=== PATIENT | female | born 1995 | race Caucasian/White ===

== ENCOUNTER 2018-03-24 18:04 | Emergency (ER) | payer SELFPAY ==
[2018-03-24 18:32] VITALS: TEMP 98
--- NOTE | 2018-03-24 18:41 | ED PDOC ---
Arrival/HPI - General Chief Complaint: ENT Problem Time Seen by Provider: 03/24/18 18:15 Historian: Patient - History of Present Illness Narrative History of Present Illness (Text): 03/24/18 18:37 A 22 year old female, with no significant past medical history, presents to the emergency department complaining of left ear pain for the past 2 days. Aching pain and associated by pulling the left ear and not touching, no hearing loss, no night sweat, no dizziness, no change in vision, no rash, no neck stiffness. Past Medical History - Provider Review Nursing Documentation Reviewed: Yes - Psychiatric Hx Substance Use: No Family/Social History - Physician Review Nursing Documentation Reviewed: Yes Family/Social History: No Known Family HX Smoking Status: Current Some Days Smoker Hx Alcohol Use: Yes Frequency of alcohol use: Socially Hx Substance Use: No Allergies/Home Meds Allergies/Adverse Reactions: Allergies No Known Allergies Allergy (Verified 03/24/18 18:13) Review of Systems - Physician Review All systems were reviewed & negative as marked: Yes - Review of Systems Constitutional: absent: Fatigue, Weight Change, Fevers Eyes: Other (left ear pain). absent: Vision Changes ENT: absent: Hearing Changes Respiratory: absent: SOB, Cough, Sputum Cardiovascular: absent: Chest Pain Gastrointestinal: absent: Abdominal Pain, Diarrhea, Nausea, Vomiting Musculoskeletal: absent: Arthralgias, Back Pain Skin: absent: Rash, Pruritis Neurological: absent: Headache Psychiatric: absent: Anxiety, Depression, Suicidal Ideation Physical Exam Vital Signs Reviewed: Yes Vital Signs Temp Pulse Resp BP Pulse Ox 03/24/18 18:28 98 F 75 20 126/53 L 99 03/24/18 18:11 98.2 F 92 H 18 121/66 96 Temperature: Afebrile Blood Pressure: Normal Pulse: Regular Respiratory Rate: Normal Appearance: Positive for: Well-Appearing, Non-Toxic, Comfortable Pain Distress: Mild Mental Status: Positive for: Alert and Oriented X 3 - Systems Exam Head: Present: Atraumatic, Normocephalic Pupils: Present: PERRL Extroacular Muscles: Present: EOMI Conjunctiva: Present: Normal Ears: Present: Other (Ears: lt. TM erythematous and intact, rt. TM mars color and intact, lt. auditory canals is erythematous, rt. auditory canals non- erythematous, no mastoid tenderness. ) Mouth: Present: Moist Mucous Membranes Nose (External): Present: Atraumatic. No: Abrasion, Contusion Nose (Internal): Present: Normal Inspection, No Active Bleeding. No: Rhinorrhea, Septal Hematoma, Epistaxis Neck: Present: Normal Range of Motion Respiratory/Chest: Present: Clear to Auscultation, Good Air Exchange. No: Respiratory Distress, Accessory Muscle Use Cardiovascular: Present: Regular Rate and Rhythm, Normal S1, S2. No: Murmurs Abdomen: No: Tenderness, Distention, Peritoneal Signs Back: Present: Normal Inspection Upper Extremity: Present: Normal Inspection. No: Cyanosis, Edema Lower Extremity: Present: Normal Inspection. No: Edema Neurological: Present: GCS=15, CN II-XII Intact, Speech Normal Skin: Present: Warm, Dry, Normal Color. No: Rashes Lymphatic: No: Cervical Adenopathy Psychiatric: Present: Alert, Oriented x 3, Normal Insight, Normal Concentration Medical Decision Making ED Course and Treatment: 03/24/18 18:40 -Urine hcg is negative -Discharge home with amoxicillin, cipro hc otic, motrin, keep the left ear dry and clean, follow up with your own pmd and ENT within 2 days, return to the ER for any new or worsening signs or symptoms. - Scribe Statement The provider has reviewed the documentation as recorded by the Christel Rosario Provider Scribe Attestation: All medical record entries made by the Scribe were at my direction and personally dictated by me. I have reviewed the chart and agree that the record accurately reflects my personal performance of the history, physical exam, medical decision making, and the department course for this patient. I have also personally directed, reviewed, and agree with the discharge instructions and dis position. Disposition/Present on Arrival - Present on Arrival Any Indicators Present on Arrival: No History of DVT/PE: No History of Uncontrolled Diabetes: No Urinary Catheter: No History of Decub. Ulcer: No History Surgical Site Infection Following: None - Disposition Have Diagnosis and Disposition been Completed?: Yes Diagnosis: Otitis media, Otitis externa Disposition: HOME/ ROUTINE Disposition Time: 18:45 Patient Problems: Current Active Problems Problem Status Onset Otitis media Acute Otitis externa Acute Condition: GOOD Additional Instructions: Discharge home with amoxicillin, cipro hc otic, motrin, keep the left ear dry and clean, follow up with your own pmd and ENT within 2 days, return to the ER for any new or worsening signs or symptoms. Prescriptions: Amoxicillin 500 mg PO TID #30 tab Ciprofloxacin/Hydrocortisone [Cipro Hc 0.2%-1% 10 ml] 3 drop OT BID #1 bot Ibuprofen [Motrin Tab] 600 mg PO QID #30 tab Referrals: Arvin Chung DO [[facility]] - Follow up with primary Forms: [facility] (Georgian), WORK NOTE
[2018-03-24 18:44] VITALS: BP 126/56; PULSE 85; RESP 19; O2SAT 100
== END 2018-03-24 18:44 | disposition home or self-care (01) ==
LOC: ED 18:04
DX: H66.90 Otitis media, unspecified, unspecified ear (principal); H60.90 Unspecified otitis externa, unspecified ear